=== PATIENT | male | born 1975 | race Caucasian/White ===

== ENCOUNTER → 2021-01-05 | Day surgery (SDC) | payer OTHER ==
[~2021-01-05] MED LIST: BACLOFEN10 MG PO; BUSPAR PO; EFFEXOR 25 MG T25 MG PO; PROTONIX40 MG PO; ZANTAC PO; [UNRECOGNIZED DRUG - REMARK] PO
== END | disposition home or self-care (01) ==
LOC: OR 07:41
PROVIDERS: Internal Medicine Gastroenterology
PROC: 0DB78ZX Excision of Stomach, Pylorus, Via Natural or Artificial Opening Endoscopic, Diagnostic (ICD-10-PCS; 2021-01-05)
PROC: 0DC68ZZ Extirpation of Matter from Stomach, Via Natural or Artificial Opening Endoscopic (ICD-10-PCS; 2021-01-05)
PROC: 0DB68ZX Excision of Stomach, Via Natural or Artificial Opening Endoscopic, Diagnostic (ICD-10-PCS; principal; 2021-01-05 12:30)
DX: K21.9 Gastro-esophageal reflux disease without esophagitis (principal); K29.50 Unspecified chronic gastritis without bleeding; T18.128A Food in esophagus causing other injury, initial encounter; F17.210 Nicotine dependence, cigarettes, uncomplicated; I10 Essential (primary) hypertension; E66.3 Overweight; Z68.26 Body mass index [BMI] 26.0-26.9, adult; Z79.899 Other long term (current) drug therapy; Z20.822 Contact with and (suspected) exposure to COVID-19
CPT/HCPCS: J2001; J2250; J2704; J7040

== ENCOUNTER 2022-05-20 20:01 | Inpatient (IN) | payer OTHER ==
[~2022-05-20] VITALS: Ht 165.1 cm; Wt 81.0 kg
[2022-05-20 20:32] LABS: HEMOGLOBIN 14.1 gm/dl (14.0-17.5); RED BLOOD COUNT 4.87 M/UL (4.20-5.50); WHITE BLOOD COUNT 25.4 K/UL (4.5-11.0)
[2022-05-20 20:59] LABS: BUN/CREATININE RATIO 17 (0-10)
[2022-05-21 03:56] LABS: HEMOGLOBIN 14.3 gm/dl (14.0-17.5); RED BLOOD COUNT 4.9 M/UL (4.20-5.50)
[2022-05-21 03:57] LABS: WHITE BLOOD COUNT 15.2 K/UL (4.5-11.0)
[2022-05-21 04:29] LABS: BUN/CREATININE RATIO 18 (0-10)
[2022-05-21] MEDS ORDERED: AMLODIPINE BESY10 MG PO (09:37)
[2022-05-21] MEDS ORDERED: ROBAXIN 750 MG750 MG PO (09:40)
[2022-05-21] MEDS ORDERED: MIRTAZAPINE15 MG PO (09:40)
[2022-05-21] MEDS ORDERED: TRELEGY ELLIPT1 EACH INH (09:40)
[2022-05-21] MEDS ORDERED: PROTONIX 40 MG40 M1 PO (09:41)
[2022-05-21] MEDS ORDERED: FLONASE ALLER15.8 ML (09:41)
[2022-05-22 05:25] LABS: RED BLOOD COUNT 4.44 M/UL (4.20-5.50)
[2022-05-22 05:31] LABS: BUN/CREATININE RATIO 13 (0-10)
[2022-05-22 05:58] LABS: WHITE BLOOD COUNT 10.7 K/UL (4.5-11.0)
[2022-05-23 04:12] LABS: HEMOGLOBIN 11.9 gm/dl (14.0-17.5); RED BLOOD COUNT 4.08 M/UL (4.20-5.50); WHITE BLOOD COUNT 8.9 K/UL (4.5-11.0)
[2022-05-23 04:44] LABS: BUN/CREATININE RATIO 14 (0-10)
[2022-05-24 04:58] LABS: HEMOGLOBIN 12.1 gm/dl (14.0-17.5); RED BLOOD COUNT 4.18 M/UL (4.20-5.50)
[2022-05-24 05:29] LABS: BUN/CREATININE RATIO 22 (0-10)
--- NOTE | 2022-05-24 19:00 | NUR ---
FAMILY AND VISITORS ATTEMPTING TO "WAKE HIM UP". EXPLANATION GIVEN REGARDING SEDATION AND THE PURPOSE OF ETT GIVEN. ENCOURAGED NOT TO OVERSTIMULATE PT AT THIS TIME. COUGHING ON OPENING EYES , GAGGING ON ETT ,02 SAT DREASED TO 85-86% ORAL AND ETT SUCTIONED, FI02 INCREASED BRIEFLY TO 100% . RT NOTIFIED AFTER 02 SATS FAILED TO MAINTAIN > 90% . WILL CONTINUE TO MONITOR.
[2022-05-25 05:37] LABS: HEMOGLOBIN 12.9 gm/dl (14.0-17.5); RED BLOOD COUNT 4.46 M/UL (4.20-5.50)
[2022-05-25 06:50] LABS: BUN/CREATININE RATIO 20 (0-10)
[2022-05-25 16:11] LABS: ORGANISM ID Not indicated. (.); SPECIMEN SOURCE Urine (.); STREPTOCOCCUS PNEUMONIAE AG Negative (Negative)
[2022-05-26 05:20] LABS: RED BLOOD COUNT 4.58 M/UL (4.20-5.50); WHITE BLOOD COUNT 9.1 K/UL (4.5-11.0)
[2022-05-26 05:29] LABS: BUN/CREATININE RATIO 28 (0-10)
[2022-05-27 04:17] LABS: HEMOGLOBIN 12.3 gm/dl (14.0-17.5); RED BLOOD COUNT 4.19 M/UL (4.20-5.50); WHITE BLOOD COUNT 8.6 K/UL (4.5-11.0)
[2022-05-27 04:37] LABS: BUN/CREATININE RATIO 27 (0-10)
[2022-05-28 03:41] LABS: HEMOGLOBIN 11.9 gm/dl (14.0-17.5); RED BLOOD COUNT 4.04 M/UL (4.20-5.50)
[2022-05-28 03:44] LABS: WHITE BLOOD COUNT 11.9 K/UL (4.5-11.0)
[2022-05-28 04:04] LABS: BUN/CREATININE RATIO 25 (0-10)
[2022-05-29 06:53] LABS: HEMOGLOBIN 12.5 gm/dl (14.0-17.5); RED BLOOD COUNT 4.3 M/UL (4.20-5.50)
[2022-05-29 07:12] LABS: BUN/CREATININE RATIO 28 (0-10)
[2022-05-30 03:56] LABS: HEMOGLOBIN 12.7 gm/dl (14.0-17.5); RED BLOOD COUNT 4.42 M/UL (4.20-5.50); WHITE BLOOD COUNT 11.1 K/UL (4.5-11.0)
[2022-05-30 04:11] LABS: BUN/CREATININE RATIO 30 (0-10)
[2022-05-31 03:53] LABS: HEMOGLOBIN 13.1 gm/dl (14.0-17.5); RED BLOOD COUNT 4.56 M/UL (4.20-5.50); WHITE BLOOD COUNT 12.3 K/UL (4.5-11.0)
[2022-05-31 04:11] LABS: BUN/CREATININE RATIO 31 (0-10)
[2022-06-01 05:22] LABS: HEMOGLOBIN 13.2 gm/dl (14.0-17.5); RED BLOOD COUNT 4.56 M/UL (4.20-5.50); WHITE BLOOD COUNT 13.2 K/UL (4.5-11.0)
[2022-06-01 05:56] LABS: BUN/CREATININE RATIO 34 (0-10)
[2022-06-01 18:44] LABS: HEMOGLOBIN 13.2 gm/dl (14.0-17.5); RED BLOOD COUNT 4.49 M/UL (4.20-5.50)
[2022-06-01 19:27] LABS: WHITE BLOOD COUNT 18.3 K/UL (4.5-11.0)
[2022-06-02 05:13] LABS: HEMOGLOBIN 13.5 gm/dl (14.0-17.5); RED BLOOD COUNT 4.64 M/UL (4.20-5.50); WHITE BLOOD COUNT 17.1 K/UL (4.5-11.0)
[2022-06-02 05:46] LABS: BUN/CREATININE RATIO 28 (0-10)
[2022-06-03 04:07] LABS: HEMOGLOBIN 14.1 gm/dl (14.0-17.5); RED BLOOD COUNT 4.82 M/UL (4.20-5.50)
[2022-06-03 04:11] LABS: WHITE BLOOD COUNT 21.9 K/UL (4.5-11.0)
[2022-06-03 04:33] LABS: BUN/CREATININE RATIO 32 (0-10)
[2022-06-04 05:45] LABS: HEMOGLOBIN 13.3 gm/dl (14.0-17.5); RED BLOOD COUNT 4.63 M/UL (4.20-5.50)
[2022-06-04 05:58] LABS: WHITE BLOOD COUNT 15.2 K/UL (4.5-11.0)
[2022-06-04 06:25] LABS: BUN/CREATININE RATIO 39 (0-10)
[2022-06-05 05:32] LABS: HEMOGLOBIN 12.6 gm/dl (14.0-17.5); RED BLOOD COUNT 4.38 M/UL (4.20-5.50); WHITE BLOOD COUNT 13.4 K/UL (4.5-11.0)
[2022-06-05 06:04] LABS: BUN/CREATININE RATIO 40 (0-10)
[2022-06-06 05:44] LABS: HEMOGLOBIN 12.9 gm/dl (14.0-17.5); RED BLOOD COUNT 4.46 M/UL (4.20-5.50); WHITE BLOOD COUNT 14.1 K/UL (4.5-11.0)
[2022-06-06 06:00] LABS: BUN/CREATININE RATIO 30 (0-10)
[2022-06-07 02:02] LABS: HEMOGLOBIN 12.6 gm/dl (14.0-17.5); RED BLOOD COUNT 4.32 M/UL (4.20-5.50); WHITE BLOOD COUNT 13.1 K/UL (4.5-11.0)
[2022-06-07 02:24] LABS: BUN/CREATININE RATIO 25 (0-10)
[2022-06-07] MEDS ORDERED: CARVEDILOL25 MG PO (11:11)
[2022-06-07] MEDS ORDERED: COMBIVENT RESPIM4 GM INH (11:11)
[2022-06-07] MEDS ORDERED: FERROUS SULFAT325 M2 PO (11:11)
[2022-06-07] MEDS ORDERED: BRILINTA 90 MG90 MG PO (11:11)
[2022-06-07] MEDS ORDERED: ATORVASTATIN CA20 MG PO (11:11)
[2022-06-07] MEDS ORDERED: LOSARTAN POTASS50 MG PO (11:11)
[2022-06-07] MEDS ORDERED: ASPIRIN81 MG PO (11:11)
== END 2022-06-07 12:02 | disposition home or self-care (01) | DRG 853 ==
LOC: ER1 20:01 → PROG CARE 20:22 → CCU 20:22 → CDU 20:22 → CCU 22:40 → PROG CARE 06-06 17:28
PROVIDERS: Emergency Medicine; Internal Medicine; Internal Medicine Cardiovascular Disease; ADMIT Internal Medicine
PROC: 027034Z Dilation of Coronary Artery, One Artery with Drug-eluting Intraluminal Device, Percutaneous Approach (ICD-10-PCS; principal; 2022-05-20)
PROC: 4A023N7 Measurement of Cardiac Sampling and Pressure, Left Heart, Percutaneous Approach (ICD-10-PCS; 2022-05-20)
PROC: B2111ZZ Fluoroscopy of Multiple Coronary Arteries using Low Osmolar Contrast (ICD-10-PCS; 2022-05-20)
PROC: B240ZZ3 Ultrasonography of Single Coronary Artery, Intravascular (ICD-10-PCS; 2022-05-20)
PROC: 5A12012 Performance of Cardiac Output, Single, Manual (ICD-10-PCS; 2022-05-20)
PROC: 0BH17EZ Insertion of Endotracheal Airway into Trachea, Via Natural or Artificial Opening (ICD-10-PCS; 2022-05-20)
PROC: 3E043XZ Introduction of Vasopressor into Central Vein, Percutaneous Approach (ICD-10-PCS; 2022-05-20)
PROC: 5A1955Z Respiratory Ventilation, Greater than 96 Consecutive Hours (ICD-10-PCS; 2022-05-20)
PROC: 3E03329 Introduction of Other Anti-infective into Peripheral Vein, Percutaneous Approach (ICD-10-PCS; 2022-05-20)
PROC: B24BZZZ Ultrasonography of Heart with Aorta (ICD-10-PCS; 2022-05-21)
PROC: 4A00X4Z Measurement of Central Nervous Electrical Activity, External Approach (ICD-10-PCS; 2022-05-25)
PROC: 02HV33Z Insertion of Infusion Device into Superior Vena Cava, Percutaneous Approach (ICD-10-PCS; 2022-05-31)
PROC: B548ZZA Ultrasonography of Superior Vena Cava, Guidance (ICD-10-PCS; 2022-05-31)
DX: A41.9 Sepsis, unspecified organism (principal); I21.09 ST elevation (STEMI) myocardial infarction involving other coronary artery of anterior wall; I46.2 Cardiac arrest due to underlying cardiac condition; R65.21 Severe sepsis with septic shock; Z20.822 Contact with and (suspected) exposure to COVID-19; J96.21 Acute and chronic respiratory failure with hypoxia; J15.0 Pneumonia due to Klebsiella pneumoniae; J44.0 Chronic obstructive pulmonary disease with (acute) lower respiratory infection; Z99.11 Dependence on respirator [ventilator] status; I10 Essential (primary) hypertension; E78.5 Hyperlipidemia, unspecified; K59.00 Constipation, unspecified; I25.5 Ischemic cardiomyopathy; L89.622 Pressure ulcer of left heel, stage 2; F17.210 Nicotine dependence, cigarettes, uncomplicated; L89.612 Pressure ulcer of right heel, stage 2; Z79.01 Long term (current) use of anticoagulants; Z79.82 Long term (current) use of aspirin; I80.9 Phlebitis and thrombophlebitis of unspecified site
CPT/HCPCS: ECHO; 36415; 36600; 51702; 70450; 71045; 74018; 76857; 80048; 80053; 81001; 82533; 82550; 82553; 82803; 82962; 83036; 83540; 83550; 83735; 83880; 84100; 84132; 84439; 84443; 84478; 84484; 85025; 85027; 85347; 85610; 85652; 85730; 86140; 87040; 87070; 87077; 87081; 87086; 87186; 87205; 87278; 87899; 92526; 92610; 92978; 93005; 93306; 93970; 93971; 94002; 94003; 94640; 94660; 94668; 94760; 94762; 95824; 96374; 97116-GP-CQ; 97163; 97166; 97530; 97530-GP-CQ; 97535; 99285; A6212; C1751; C9113; J0295; J0360; J0461; J0690; J0878; J1205; J1644; J1650; J1940; J2060; J2185; J2250; J2370; J2704; J3010; J3246; J3370; J3475; J7030; J7040; J7050; J7070; Q9965; Q9967; U0002

== ENCOUNTER → 2022-07-11 | Outpatient (CLI) | payer OTHER ==
[~2022-07-11] MED LIST changes: +AMLODIPINE BESY10 MG PO; +ASPIRIN81 MG PO; +ATORVASTATIN CA20 MG PO; +BRILINTA 90 MG90 MG PO; +CARVEDILOL25 MG PO; +COMBIVENT RESPIM4 GM INH; +FERROUS SULFAT325 M2 PO; +FLONASE ALLER15.8 ML; +LOSARTAN POTASS50 MG PO; +MIRTAZAPINE15 MG PO; +PROTONIX 40 MG40 M1 PO; +ROBAXIN 750 MG750 MG PO; +TRELEGY ELLIPT1 EACH INH
== END ==
LOC: HEART 5 10:05
DX: J44.9 Chronic obstructive pulmonary disease, unspecified (principal)
CPT/HCPCS: 71046; 94060; 94729